=== PATIENT | female | born 1975 | race Caucasian/White ===

== ENCOUNTER → 2017-08-01 | Outpatient (CLI) | payer BC ==
[~2017-08-01] MED LIST: ACE3 PO; ACE500 PO; ACET-1966 PO; ACET1TAB PO; ACET500T68 PO; ASCO-504 PO; CEPH500T7 PO; CHOL10005 PO; CHOL100058 PO; CIPR500S3 PO; CYCL10TA29 PO; DOCU-416 PO; DOCU100C49 PO; DULO60CA7 PO; FAMO20TA28 PO; FAMO20TA9 PO; FAMO40TA8 PO; FERR240T23 PO; FLUO-202 PO; GASTROZYME; GUAI600T57 PO; HYDR25 PO; IBU800 PO; IBUP200C71 PO; INDO-1 PO; LACT1CAP9 PO; LEVO75TA68 PO; LEVO75TA73 PO; MAGN250T26 PO; NAPR500T75 PO; NONE CURRENTLY; OMEG500C7 PO; OXYC-373 PO; OXYC-854 PO; PANT40TA13 PO; POLY17PO25 PO; PREN-67 PO; VITA150T2 PO; [UNRECOGNIZED DRUG - CODE] PO; [UNRECOGNIZED DRUG - OTHER]; iodine PO; vit c
[2017-08-01 15:02] LABS: PLATELET COUNT, AUTOMATED 318 K/uL (150-450)
== END ==
LOC: LAB 14:34
PROVIDERS: ATTEND Nurse Practitioner Family
DX: K21.9 Gastro-esophageal reflux disease without esophagitis (principal); R13.10 Dysphagia, unspecified; R68.81 Early satiety; D50.9 Iron deficiency anemia, unspecified; Z80.9 Family history of malignant neoplasm, unspecified
CPT/HCPCS: 36415; 82040; 82247; 82310; 82374; 82435; 82565; 82947; 83540; 83550; 84075; 84132; 84155; 84295; 84439; 84443; 84450; 84460; 84481; 84520; 85025

== ENCOUNTER → 2017-08-02 | Outpatient (CLI) | payer BC ==
[~2017-08-02] MED LIST changes: +GADOBENATE 529MG/1ML 15ML VIAL IVP ONE
--- NOTE | 2017-08-02 13:07 | RADIOLOGY IMAGING REPORT ---
FACILITY: [facility] - [place] PATIENT NAME: Margie Newman : 1975 MR: [id number] V: [id number] EXAM DATE: ORDERING PHYSICIAN: KEVON KERN TECHNOLOGIST: Location: [facility] Patient: Margie Newman : 1975 Visit/Account:[id number] Date of Sevice: 08/02/2017 Exam type: ORBITS FOREIGN BODY 1 VIEW History: Pre-MRI screening Comparison: None. Findings: No radiopaque metallic foreign bodies project over the orbits IMPRESSION: 1. No radiopaque metallic foreign bodies project over the orbits Report Dictated By: Cinthia Witt MD at 08/02/2017 1:01 PM Report E-Signed By: Cinthia Witt MD at 08/02/2017 1:02 PM WSN:[email or web address]
--- NOTE | 2017-08-02 14:31 | RADIOLOGY IMAGING REPORT ---
[place] [facility] [place] NAME: Margie Newman : 1975 MR: [id number] V: [id number] EXAM DATE: ORDERING PHYSICIAN: KEVON KERN TECHNOLOGIST: [place] [facility] [place] : 1975 Visit/Account:[id number] Date of Sevice: 08/02/2017 BRAIN W W/O CONTRAST Provided history: New right foot drop Additional pertinent history: none TECHNIQUE: Multiplanar multisequence brain MRI was performed without and with intravenous contrast Contrast dose: 15 mL of MultiHance. Additional focused sequences: none COMPARISON STUDIES: None FINDINGS: Brain volume: Normal Acute ischemia: None Chronic cortical and ganglionic ischemia: none significant Hemorrhage: None Masses / edema: None White matter lesions : Normal Vessels: Normal Extra-axial: None Calvarium / scalp: Negative Skull base / infratemporal fossa: negative Visualized sinuses / orbits / upper neck: negative IMPRESSION: Normal MR of the brain. No evidence of mass, acute ischemia or hemorrhage. Report Dictated By: Ashutosh Garcia MD at 08/02/2017 1:59 PM Report E-Signed By: Ashutosh Garcia MD at 08/02/2017 2:03 PM WSN:[email or web address]
== END ==
LOC: MRI 03:39
PROVIDERS: ATTEND Family Medicine
DX: M21.371 Foot drop, right foot (principal)
CPT/HCPCS: 70030; 70553; A9577

== ENCOUNTER → 2017-08-07 | Outpatient (CLI) | payer BC ==
[~2017-08-07] MED LIST changes: -GADOBENATE 529MG/1ML 15ML VIAL IVP ONE
--- NOTE | 2017-08-07 09:40 | RADIOLOGY IMAGING REPORT ---
FACILITY: [facility] PATIENT NAME: Margie Newman : 1975 MR: [id number] V: [id number] EXAM DATE: ORDERING PHYSICIAN: KEVON KERN TECHNOLOGIST: Location: [facility] Patient: Margie Newman : 1975 Visit/Account:[id number] Date of Sevice: 08/07/2017 Exam type: LUMBAR SPINE 4 VIEWS History: Low back pain, right foot drop Comparison: None. Findings: There are five nonrib-bearing lumbar-type vertebral bodies present. There is no evidence of acute fr actures or subluxations. This mild disc space narrowing noted at L1-2 with small anterior osteophyte s. Small anterior osteophytes also noted at L2-3. There is moderate disc space narrowing with anter ior/ posterior osteophytes at L3-4 and L4-5 and L5-S1 IMPRESSION: 1. Mild to moderate multilevel spondylotic changes lumbar spine as detailed above Report Dictated By: Cinthia Witt MD at 08/07/2017 9:34 AM Report E-Signed By: Cinthia Witt MD at 08/07/2017 9:36 AM WSN:[email or web address]
== END ==
LOC: RAD 08:19
PROVIDERS: ATTEND Family Medicine
DX: M47.896 Other spondylosis, lumbar region (principal)
CPT/HCPCS: 72120

== ENCOUNTER 2017-08-11 16:15 | Emergency (ER) | payer BC ==
[~2017-08-11] VITALS: Ht 167.6 cm; Wt 93.0 kg
[2017-08-11] MEDS ORDERED: LEVO75TA73 PO (16:23)
[2017-08-11] MEDS ORDERED: NS(*) 0.9% 1000 ML BAG 1,000 ML IV ONE (16:36)
[2017-08-11 16:46] LABS: PLATELET COUNT, AUTOMATED 310 K/uL (150-450)
--- NOTE | 2017-08-11 16:53 | EKG ---
FACILITY: [facility] [place] PATIENT NAME: CARLA PAGAN : [id number] MR: [id number] V: [id number] EXAM DATE: ORDERING PHYSICIAN: PORFIRIO LEIJA TECHNOLOGIST: ETIENNE Donovan Reason : not feeling well Blood Pressure : / mmHG Vent. Rate : 081 BPM Atrial Rate : 081 BPM P-R Int : 148 ms QRS Dur : 100 ms QT Int : 394 ms P-R-T Axes : 062 031 057 degrees QTc Int : 457 ms Normal sinus rhythm Normal ECG When compared with ECG of 01-OCT-2016 11:56, No significant change was found Confirmed by AN ARTHUR ([id number]) on 08/12/2017 6:23:49 AM Referred By: Confirmed By:AN ARTHUR
--- NOTE | 2017-08-11 17:06 | ER Report ---
History and Physical Time Seen By MD: 16:30 Hx. of Stated Complaint: P PRESENTS VIA AMBULANCE WITH HX OF LIGHTHEADED AND DIZZY, WITH A RAPID HEART RATE. HAS BEEN DEALING WITH HER THYROID MEDS CHANGING LAST FEW DAYS HPI/ROS CHIEF COMPLAINT: Not feeling well, racing heart HISTORY OF PRESENT ILLNESS: 41-year-old female patient presents to emergency room with complaint of not feeling well. Patient states that she has had a racing heart. She states that she has not felt well all day, she was sitting on the toilet and was having a diarrhea bowel movement. She states that while she was there she felt her heart was beating out of her chest. She states that she has been feeling better for the last couple of minutes, but she still feels like she is not feeling well. She denies having any fevers, however she states she has had hot flashes. She denies any nausea, vomiting but states she has had some diarrhea. She states she is not taking any medication for this. Patient does have a history of Franca's, fibromyalgia. REVIEW OF SYSTEMS: Respiratory: No cough, no dyspnea. Cardiovascular: As noted above Gastrointestinal: No vomiting, no abdominal pain. Musculoskeletal: No back pain. Allergies: Coded Allergies: Sulfa (Sulfonamide Antibiotics) (Verified Allergy, Severe, 08/11/17) pantoprazole sodium (Verified Allergy, Intermediate, FACIAL SWELLING, 08/11) Home Meds Reported Medications Levothyroxine Sodium (LEVOTHYROXINE SODIUM) 75 Mcg Tablet, 75 MCG PO QDAY, TAB 08/11/17 Duloxetine HCl (Duloxetine HCl) 60 Mg Capsule.dr, 30 CAP PO DAILY 05/20/17 [Gastrozyme] No Conflict Check 05/20/17 Famotidine (PEPCID) 20 Mg Tablet, 40 MG PO QDAY, #10 TAB 10/01/16 Cholecalciferol (Vitamin D3) (VITAMIN D3) 1,000 Unit Tablet, 43527 UNIT PO QDAY , TAB 10/01/16 Ferrous Gluconate (IRON) 240 Mg Tablet, 240 MG PO QDAY 10/01/16 Docusate Sodium (STOOL SOFTENER) 100 Mg Capsule, 100 MG PO DAILY, CAPSULE 02/02/16 Ascorbate Calcium (VITAMIN C) 500 Mg Tablet, 500 MG PO QDAY 07/28/15 Magnesium (MAGNESIUM) 250 Mg Tablet, 250 MG PO QDAY 07/28/15 Vitamin B Complex & Vit C No.4 (SUPER B COMPLEX) 150 Mg Tablet, 150 MG PO QDAY 07/28/15 Discontinued Reported Medications [Iodizyme] No Conflict Check 05/20/17 Discontinued Scripts Naproxen (NAPROSYN) 500 Mg Tablet, 500 MG PO Q12H Y for PAIN, #20 TAB 0 Refills Prov:TUNG JOHNSON MD 10/01/16 Past Medical/Surgical History Patient has a past medical history of migraines, hiatal hernia, back pain, Franca's, depression, anxiety. Patient has surgical history of tubal ligation, EGD, bunionectomy, lymph node removal. Patient has a family medical history of cancer, CAD, stroke, diabetes. Reviewed Nurses Notes: Yes Hx Smoking: Yes (1/2ppd X 20) Smoking Status: Former Smoker Exposure to Second Hand Smoke?: Yes Hx Substance Use Disorder: No Hx Alcohol Use: No Constitutional Vital Sign - Last 24 Hours 08/11/17 08/11/17 08/11/17 08/11/17 16:15 16:16 16:17 16:30 Temp 98.9 Pulse 87 80 Resp 16 B/P (MAP) 113/68 (83) 126/73 115/85 (95) Pulse Ox 92 93 O2 Delivery Room Air 08/11/17 08/11/17 08/11/17 08/11/17 16:45 17:00 17:19 17:20 Pulse 81 76 Resp 0 B/P (MAP) 120/80 (93) 119/72 (88) Pulse Ox 90 94 08/11/17 08/11/17 08/11/17 17:50 18:00 18:21 Pulse 76 B/P (MAP) 101/69 (80) 105/66 (79) Pulse Ox 93 Intake and Output 08/11/17 08/11/17 08/12/17 15:00 23:00 07:00 Intake Total 800 ml Balance 800 ml Physical Exam General Appearance: The patient is alert, has no immediate need for airway protection and no current signs of toxicity. ENT: Tympanic membranes are pearly-gutierrez, auditory canals are patent, mucous membranes are moist. Respiratory: Chest is non tender, lungs are clear to auscultation. Cardiac: regular rate and rhythm Gastrointestinal: Abdomen is soft and non tender, no masses, bowel sounds normal. Musculoskeletal: Neck: Neck is supple and non tender. Extremities have full range of motion and are non tender. Skin: No rashes or lesions. DIFFERENTIAL DIAGNOSIS: After history and physical exam differential diagnosis was considered for viral syndrome, influenza, gastroenteritis. Medical Decision Making Data Points Result Diagram: 08/11/17 1605 08/11/17 1605 Laboratory Hematology Test 08/11/17 16:05 08/11/17 16:54 08/11/17 17:19 Red Blood Count 5.41 M/uL (4.17-5.56) Mean Corpuscular Volume 89.0 fL (80.0-96.0) Mean Corpuscular Hemoglobin 31.3 pg (26.0-33.0) Mean Corpuscular Hemoglobin Concent 35.1 g/dL (32.0-36.0) Red Cell Distribution Width 13.1 % (11.5-14.5) Mean Platelet Volume 7.3 fL (7.2-11.1) Neutrophils (%) (Auto) 49.1 % (39.4-72.5) Lymphocytes (%) (Auto) 37.7 % (17.6-49.6) Monocytes (%) (Auto) 10.3 % (4.1-12.4) Eosinophils (%) (Auto) 1.9 % (0.4-6.7) Basophils (%) (Auto) 1.0 % (0.3-1.4) Nucleated RBC Relative Count (auto) 0.2 /100WBC Neutrophils # (Auto) 5.2 K/uL (2.0-7.4) Lymphocytes # (Auto) 4.0 K/uL (1.3-3.6) Monocytes # (Auto) 1.1 K/uL (0.3-1.0) Eosinophils # (Auto) 0.2 K/uL (0.0-0.5) Basophils # (Auto) 0.1 K/uL (0.0-0.1) Nucleated RBC Absolute Count (auto) 0.02 K/uL Sodium Level 138 mmol/L (137-145) Potassium Level 3.6 mmol/L (3.5-5.0) Chloride Level 102 mmol/L (98-107) Carbon Dioxide Level 25 mmol/L (22-31) Blood Urea Nitrogen 15 mg/dl (7-18) Creatinine 0.80 mg/dl (0.52-1.04) Glomerular Filtration Rate Calc > 60.0 Random Glucose 96 mg/dl (75-110) Calcium Level 9.8 mg/dl (8.4-10.2) Total Bilirubin 0.4 mg/dl (0.2-1.3) Aspartate Amino Transf (AST/SGOT) 35 U/L (0-35) Alanine Aminotransferase (ALT/SGPT) 39 U/L (0-56) Alkaline Phosphatase 81 U/L (0-126) C-Reactive Protein < 0.5 mg/dl (<1.0) Total Protein 8.5 gm/dl (6.3-8.2) Albumin 4.8 g/dl (3.5-5.0) Lipase 144 U/L (23-300) Human Chorionic Gonadotropin, Qual Negative (NEGATIVE) Influenza Virus Type A (PCR) Negative (NEGATIVE) Influenza Virus Type B (PCR) Negative (NEGATIVE) Urine Color Straw Urine Clarity Clear Urine pH 6.0 pH (4.8-9.5) Urine Specific Campbell 1.002 Urine Protein Negative mg/dL (NEGATIVE) Urine Glucose (UA) Negative mg/dL (NEGATIVE) Urine Ketones Negative mg/dL (NEGATIVE) Urine Blood Negative (NEGATIVE) Urine Nitrite Negative (NEGATIVE) Urine Bilirubin Negative (NEGATIVE) Urine Urobilinogen Negative mg/dL (0.2-1.9) Urine Leukocyte Esterase Negative (NEGATIVE) Urine RBC 1 /HPF (0-2/HPF) Urine WBC <1 /HPF (0-5/HPF) Urine Squamous Epithelial Cells Many /LPF (</=FEW) Urine Bacteria Negative /HPF (NONE-FEW) Urine Mucus None /HPF (NONE-FEW) Chemistry Test 08/11/17 16:05 08/11/17 16:54 08/11/17 17:19 White Blood Count 10.6 k/uL (4.5-11.0) Red Blood Count 5.41 M/uL (4.17-5.56) Hemoglobin 16.9 g/dL (12.0-16.0) Hematocrit 48.2 % (34.0-47.0) Mean Corpuscular Volume 89.0 fL (80.0-96.0) Mean Corpuscular Hemoglobin 31.3 pg (26.0-33.0) Mean Corpuscular Hemoglobin Concent 35.1 g/dL (32.0-36.0) Red Cell Distribution Width 13.1 % (11.5-14.5) Platelet Count 310 K/uL (150-450) Mean Platelet Volume 7.3 fL (7.2-11.1) Neutrophils (%) (Auto) 49.1 % (39.4-72.5) Lymphocytes (%) (Auto) 37.7 % (17.6-49.6) Monocytes (%) (Auto) 10.3 % (4.1-12.4) Eosinophils (%) (Auto) 1.9 % (0.4-6.7) Basophils (%) (Auto) 1.0 % (0.3-1.4) Nucleated RBC Relative Count (auto) 0.2 /100WBC Neutrophils # (Auto) 5.2 K/uL (2.0-7.4) Lymphocytes # (Auto) 4.0 K/uL (1.3-3.6) Monocytes # (Auto) 1.1 K/uL (0.3-1.0) Eosinophils # (Auto) 0.2 K/uL (0.0-0.5) Basophils # (Auto) 0.1 K/uL (0.0-0.1) Nucleated RBC Absolute Count (auto) 0.02 K/uL Glomerular Filtration Rate Calc > 60.0 Calcium Level 9.8 mg/dl (8.4-10.2) Total Bilirubin 0.4 mg/dl (0.2-1.3) Aspartate Amino Transf (AST/SGOT) 35 U/L (0-35) Alanine Aminotransferase (ALT/SGPT) 39 U/L (0-56) Alkaline Phosphatase 81 U/L (0-126) C-Reactive Protein < 0.5 mg/dl (<1.0) Total Protein 8.5 gm/dl (6.3-8.2) Albumin 4.8 g/dl (3.5-5.0) Lipase 144 U/L (23-300) Human Chorionic Gonadotropin, Qual Negative (NEGATIVE) Influenza Virus Type A (PCR) Negative (NEGATIVE) Influenza Virus Type B (PCR) Negative (NEGATIVE) Urine Color Straw Urine Clarity Clear Urine pH 6.0 pH (4.8-9.5) Urine Specific Campbell 1.002 Urine Protein Negative mg/dL (NEGATIVE) Urine Glucose (UA) Negative mg/dL (NEGATIVE) Urine Ketones Negative mg/dL (NEGATIVE) Urine Blood Negative (NEGATIVE) Urine Nitrite Negative (NEGATIVE) Urine Bilirubin Negative (NEGATIVE) Urine Urobilinogen Negative mg/dL (0.2-1.9) Urine Leukocyte Esterase Negative (NEGATIVE) Urine RBC 1 /HPF (0-2/HPF) Urine WBC <1 /HPF (0-5/HPF) Urine Squamous Epithelial Cells Many /LPF (</=FEW) Urine Bacteria Negative /HPF (NONE-FEW) Urine Mucus None /HPF (NONE-FEW) Urinalysis Test 08/11/17 17:19 Urine Color Straw Urine Clarity Clear Urine pH 6.0 pH (4.8-9.5) Urine Specific Campbell 1.002 Urine Protein Negative mg/dL (NEGATIVE) Urine Glucose (UA) Negative mg/dL (NEGATIVE) Urine Ketones Negative mg/dL (NEGATIVE) Urine Blood Negative (NEGATIVE) Urine Nitrite Negative (NEGATIVE) Urine Bilirubin Negative (NEGATIVE) Urine Urobilinogen Negative mg/dL (0.2-1.9) Urine Leukocyte Esterase Negative (NEGATIVE) Urine RBC 1 /HPF (0-2/HPF) Urine WBC <1 /HPF (0-5/HPF) Urine Squamous Epithelial Cells Many /LPF (</=FEW) Urine Bacteria Negative /HPF (NONE-FEW) Urine Mucus None /HPF (NONE-FEW) EKG/Imaging EKG Interpretation 12 lead EKG: Rhythm: normal sinus rhythm with ventricular rate of 81 bpm. [place]: normal QRS: normal ST segments: normal Imaging ABDOMEN AP AND ERECT/DECUB INDICATION: Not feeling well. COMPARISON: None available FINDINGS: Supine and upright AP views of the abdomen. Some stool seen throughout colon. Bowel gas pattern is nonobstructed nondilated with some fluid -filled loops of small bowel. There is a tiny ringlike density in the left lateral abdomen which may be debris in the alimentary tract. Abdominal soft tissues are grossly normal without suspicious lucencies or abnormal calcifications. Lung bases are clear. No acute bony abnormality. IMPRESSION: Unremarkable exam. Report Dictated By: Hemant Romero at 08/11/2017 5:57 PM Report E-Signed By: Hemant Romero at 08/11/2017 5:59 PM 2 VIEWS CHEST INDICATION: Not feeling well. COMPARISON: 10/01/2016. FINDINGS: Cardiomediastinal silhouette and pulmonary vessels within normal limits. There is no focal infiltrate or lobar consolidation. There is no pneumothorax or pleural effusion. No nodule. Upper abdomen is unremarkable. No acute bony abnormality. IMPRESSION: 1. No acute cardiopulmonary process. Report Dictated By: Hemant Romero at 08/11/2017 5:56 PM Report E-Signed By: Hemant Romero at 08/11/2017 5:57 PM ED Course/Re-evaluation ED Course Patient is admitted and examined, history and physical were obtained. Differential diagnoses were considered. On examination patient had a heart rate that was in the 80s, patient had no tachycardia, no runs on examination. A CBC, CMP, urinalysis, influenza screen were done. Patient received a bolus of normal saline. X-rays of the chest and abdomen were done due to the diarrhea and elevated heart rate. The labs were unremarkable, the influenza was negative, the x-rays were also normal. Patient had an EKG which showed a normal sinus rhythm. I discussed findings with the patient and her family. I believe that she is likely having a viral syndrome. Is causing her diarrhea as well as her not feel well. We will go ahead and discharge patient home at this time. She is to increase her fluid intake, get plenty of rest, take Tylenol ibuprofen as if pain. The patient verbalized understanding and agreement with plan. Decision to Disposition Date: Aug 11, 2017 Decision to Disposition Time: 18:18 Depart Departure Latest Vital Signs Vital Signs Date Time Temp Pulse Resp B/P (MAP) Pulse Ox O2 Delivery O2 Flow Rate FiO2 08/11/17 18:21 105/66 (79) 08/11/17 17:50 76 93 08/11/17 16:45 0 08/11/17 16:17 98.9 Room Air Impression: Primary Impression: Viral syndrome Condition: Improved Disposition: HOME OR SELF-CARE Referrals: KEVON KERN DO (PCP) Patient Instructions: Viral Syndrome (ED) Additional Instructions: Increase fluid intake. Get plenty of rest. Take Tylenol or Ibuprofen as needed for pain. Follow up with your primary care provider in the next week. Return to the ER if condition worsens. You may take over the counter Pepto Bismol as needed for cramping, diarrhea and discomfort. PORFIRIO LEIJA Aug 11, 2017 17:06
--- NOTE | 2017-08-11 18:01 | RADIOLOGY IMAGING REPORT ---
FACILITY: [facility] PATIENT NAME: Margie Newman : 1975 MR: [id number] V: [id number] EXAM DATE: ORDERING PHYSICIAN: PORFIRIO LEIJA TECHNOLOGIST: Location: [facility] Patient: Margie Newman : 1975 Visit/Account:[id number] Date of Sevice: 08/11/2017 2 VIEWS CHEST INDICATION: Not feeling well. COMPARISON: 10/01/2016. FINDINGS: Cardiomediastinal silhouette and pulmonary vessels within normal limits. There is no focal infiltrate or lobar consolidation. There is no pneumothorax or pleural effusion. No nodule. Upper abdomen is unremarkable. No acute bony abnormality. IMPRESSION: 1. No acute cardiopulmonary process. Report Dictated By: Hemant Romero at 08/11/2017 5:56 PM Report E-Signed By: Hemant Romero at 08/11/2017 5:57 PM WSN:[id number]
--- NOTE | 2017-08-11 18:03 | RADIOLOGY IMAGING REPORT ---
[place] [facility] [place] NAME: Margie Newman : 1975 MR: [id number] V: [id number] EXAM DATE: ORDERING PHYSICIAN: PORFIRIO LEIJA TECHNOLOGIST: Location: [facility] [place] Patient: Margie Newman : 1975 Visit/Account:[id number] Date of Sevice: 08/11/2017 ABDOMEN AP AND ERECT/DECUB INDICATION: Not feeling well. COMPARISON: None available FINDINGS: Supine and upright AP views of the abdomen. Some stool seen throughout colon. Bowel gas pattern is nonobstructed nondilated with some fluid-filled loops of small bowel. There is a tiny ri nglike density in the left lateral abdomen which may be debris in the alimentary tract. Abdominal so ft tissues are grossly normal without suspicious lucencies or abnormal calcifications. Lung bases ar e clear. No acute bony abnormality. IMPRESSION: Unremarkable exam. Report Dictated By: Hemant Romero at 08/11/2017 5:57 PM Report E-Signed By: Hemant Romero at 08/11/2017 5:59 PM WSN:[id number]
[2017-08-11 18:21] VITALS: BP 105/66
== END 2017-08-11 18:25 | disposition home or self-care (01) ==
LOC: ER 16:30
DX: B34.9 Viral infection, unspecified (principal)
CPT/HCPCS: 71046; 74019; 81001; 83690; 84703; 85025; 86140; 87502; 93005; 96360; 96361; 99284; J7030; 82040; 82247; 82310; 82374; 82435; 82565; 82947; 84075; 84132; 84155; 84295; 84450; 84460; 84520

== ENCOUNTER → 2017-08-11 | Outpatient (CLI) | payer BC | LOC: AMB 15:58 | PROVIDERS: ATTEND Nurse Practitioner | DX: R00.0 Tachycardia, unspecified (principal); R11.0 Nausea; R50.9 Fever, unspecified | CPT/HCPCS: A0425; A0427 ==

== ENCOUNTER 2017-08-29 00:13 | Day surgery (SDC) | payer BC ==
[~2017-08-29] VITALS: Ht 167.6 cm; Wt 93.9 kg
[2017-08-29] MEDS ORDERED: PROPOFOL EMUL(*) 10MG/ML 20 ML 20 ML ONE ×4 (07:09→12:00)
[2017-08-29 09:52] VITALS: BP 112/76
[2017-08-29] MEDS ORDERED: MIDAZOLAM 2 MG/2 ML VIAL IVP PRN (12:05)
[2017-08-29] MEDS ORDERED: NORMOSOL R SOLN(*) 1000 ML BAG 1,000 ML IV PRN (12:05)
[2017-08-29] MEDS ORDERED: LIDOCAINE/SOD BICARB 8.4% SYR ID ONE (12:05)
[2017-08-29 12:11] VITALS: BP 109/59
[2017-08-29 12:15] VITALS: BP 95/54
[2017-08-29 12:27] VITALS: BP 108/74
[2017-08-29 12:28] VITALS: BP 122/88
== END 2017-08-29 13:15 | disposition home or self-care (01) ==
LOC: OR 00:13
PROVIDERS: ATTEND Internal Medicine Gastroenterology
DX: K64.8 Other hemorrhoids (principal); K57.30 Diverticulosis of large intestine without perforation or abscess without bleeding; K63.5 Polyp of colon
CPT/HCPCS: 00811; 45380; 81025; 88305; 88313; 88344; J2704; C1769

== ENCOUNTER → 2017-09-04 | Outpatient (CLI) | payer BC ==
[~2017-09-04] MED LIST changes: +IOPAMIDOL 76% 75 ML INFUS BTL 75 ML ONE
[2017-09-04 11:38] LABS: PLATELET COUNT, AUTOMATED 314 K/uL (150-450)
--- NOTE | 2017-09-04 12:43 | RADIOLOGY IMAGING REPORT ---
FACILITY: [facility] - [place] PATIENT NAME: Margie Newman : 1975 MR: [id number] V: [id number] EXAM DATE: ORDERING PHYSICIAN: NORA LOPEZ TECHNOLOGIST: Location: [facility] [place] Patient: Margie Newman : 1975 Visit/Account:[id number] Date of Sevice: 09/04/2017 COMPUTED TOMOGRAPHY OF THE Abdomen and Pelvis with CONTRAST INDICATION: Postprocedural epigastric pain. TECHNIQUE: Contiguous axial 3.[address] images were obtained through the abdomen and pelvis after the administration of Isovue 370. The volume was not recorded on the paperwork. Coronal and sagittal refo rmatted images were submitted. COMPARISON: CT of May 20, 2017. FINDINGS: Lung bases: Mild dependent atelectasis. Liver and hepatic vasculature: Subcentimeter hypodensity posteriorly in the right lobe of the liver is too small to characterize but could be a cyst (series 2 image 56). Smooth liver surface. No ascite s. Gallbladder and bile ducts: Normal gallbladder. Spleen: Normal spleen. Pancreas: Normal pancreas. Adrenals: Normal adrenals. Kidneys, ureters and bladder: Symmetric renal enhancement. No hydronephrosis.. A calcification in th e right lower pelvis is likely a phlebolith. The downstream course of the right ureter is not well de fined. Normal-appearing bladder. Retroperitoneum and aorta: Mild aortic atherosclerosis. No retroperitoneal adenopathy. GI tract, mesentery and peritoneum: Normal appendix. No bowel obstruction. No free fluid or free air. Uterus and adnexa: Unremarkable uterus may be bicornuate. Trace fluid in cul-de-sac is within physiol ogic limits. The ovaries are not well defined. Bones and soft tissues: No acute osseous abnormality. Moderate multilevel disc and endplate degenerat lina findings in the lumbar spine most notable at L3-4 and L4-5. IMPRESSION: 1. Trace fluid in the cul-de-sac is likely physiologic. The ovaries are not well-defined. 2. No definite evidence of acute intra-abdominal abnormality. Findings of no acute abnormality telephoned directly to the ordering provider by the radiology I[facility]. One of the following dose optimization techniques was utilized in the performance of this exam: Autom ated exposure control; adjustment of the mA and/or kV according to the patient's size; or use of an i terative reconstruction technique. Specific details can be referenced in the facility's radiology C T exam operational policy. Report Dictated By: Jesica Velarde MD at 09/04/2017 12:29 PM Report E-Signed By: Jesica Velarde MD at 09/04/2017 12:39 PM WSN:[id number]
== END ==
LOC: CT 01:05
PROVIDERS: ATTEND Nurse Practitioner Family
DX: J98.11 Atelectasis (principal)
CPT/HCPCS: 36415; 74177; 85025; Q9967; 82040; 82247; 82310; 82374; 82435; 82565; 82947; 84075; 84132; 84155; 84295; 84450; 84460; 84520

== ENCOUNTER → 2018-01-24 | Outpatient (CLI) | payer BC ==
[~2018-01-24] MED LIST changes: +BIFI4CAP2 PO; +HYDR-385 PO; +IBUP-136 PO; -IBUP200C71 PO; -INDO-1 PO; +INDO-21 PO; -IOPAMIDOL 76% 75 ML INFUS BTL 75 ML ONE
== END ==
LOC: RESP 20:48
PROVIDERS: ATTEND Family Medicine
DX: G47.30 Sleep apnea, unspecified (principal); G47.61 Periodic limb movement disorder

== ENCOUNTER 2018-01-31 15:20 | Emergency (ER) | payer OTHER, BC ==
[2018-01-31 15:20] VITALS: BP 130/72
[~2018-01-31 15:20] MED LIST changes: -BIFI4CAP2 PO; -HYDR-385 PO
[2018-01-31] MEDS ORDERED: BIFI4CAP2 PO (15:25)
--- NOTE | 2018-01-31 15:46 | ER Report ---
History and Physical Time Seen By MD: 15:33 Hx. of Stated Complaint: PT REPORTS L GREAT TOE INJURY HPI/ROS CHIEF COMPLAINT: Left foot pain HISTORY OF PRESENT ILLNESS: 42-year-old female patient presents to emergency room with complaint of left foot pain. Patient states that she was at work today , her and another coworker were moving a beam. She states that the coworker move and she was expecting causing her to lose her balance and fall. She states when it happened she hurt her left great toe. Patient states she also hit her knee on the edema they were moving. Patient states she does have some pain to the left knee, however most of the pain is with the left great toe. States that she has pain with movement. She denies taking any medication for this. She has not applied any ice. States she has significant amount of pain with ambulation. Allergies: Coded Allergies: Sulfa (Sulfonamide Antibiotics) (Verified Allergy, Severe, 01/31/18) pantoprazole sodium (Verified Allergy, Intermediate, FACIAL SWELLING, 01/31) Home Meds Active Scripts Hydrocodone Bit/Acetaminophen (HYDROCODON-ACETAMINOPHEN 5-325) 1 Each Tablet, 1 EACH PO Q4-6H Y for PAIN, #10 TAB Prov:PORFIRIO LEIJA BOILER/CHILLER TECHNICIAN 01/31/18 Reported Medications Bifidobacterium Infantis (ALIGN) 4 Mg Capsule, 4 MG PO QDAY, CAPSULE 01/31/18 Levothyroxine Sodium (LEVOTHYROXINE SODIUM) 75 Mcg Tablet, 75 MCG PO QDAY, TAB 08/11/17 Duloxetine HCl (Duloxetine HCl) 60 Mg Capsule.dr, 30 CAP PO DAILY 05/20/17 Famotidine (PEPCID) 20 Mg Tablet, 40 MG PO QDAY, #10 TAB 10/01/16 Cholecalciferol (Vitamin D3) (VITAMIN D3) 1,000 Unit Tablet, 35038 UNIT PO QDAY , TAB 10/01/16 Ascorbate Calcium (VITAMIN C) 500 Mg Tablet, 500 MG PO QDAY 07/28/15 Vitamin B Complex & Vit C No.4 (SUPER B COMPLEX) 150 Mg Tablet, 150 MG PO QDAY 07/28/15 Discontinued Reported Medications Ferrous Gluconate (IRON) 240 Mg Tablet, 240 MG PO QDAY 10/01/16 Docusate Sodium (STOOL SOFTENER) 100 Mg Capsule, 100 MG PO DAILY, CAPSULE 02/02/16 Past Medical/Surgical History Patient has a past medical history of migraines, reflux, gastroparesis, hiatal hernia, pain left elbow, back pain, Franca's, thyroid nodules, depression, anxiety, fibromyalgia. Patient has a surgical history of EGD, tubal ligation, bunionectomy, lymph node biopsy. Patient has a family medical history of cancer, CAD, stroke, diabetes. Reviewed Nurses Notes: Yes Hx Smoking: Yes (1/2ppd X 20) Smoking Status: Former Smoker Exposure to Second Hand Smoke?: Yes Hx Substance Use Disorder: No Hx Alcohol Use: No Constitutional Vital Sign - Last 24 Hours 01/31/18 15:20 Temp 98.5 Pulse 96 Resp 16 B/P (MAP) 130/72 Pulse Ox 94 O2 Delivery Room Air Physical Exam General appearance: Alert no distress. Respiratory: Chest is non tender, lungs are clear to auscultation. Cardiac: Regular rate and rhythm Musculoskeletal: Patient has some tenderness to the left great toe, there is no swelling or bruising noted. Patient does have abrasion and some very mild bruising around the knee. DIFFERENTIAL DIAGNOSIS: After history and physical exam differential diagnosis was considered for fracture, contusion, sprain. Medical Decision Making EKG/Imaging Imaging EXAMINATION: Left foot 3 views HISTORY: Fall. COMPARISON: None. FINDINGS: There is a nondisplaced fracture traversing the distal shaft of the proximal phalanx of the left first toe. No displacement or angulation. No evidence of additional fracture or dislocation in the left foot. There is chronic appearing irregularity along the head and neck of the first metacarpal which could be degenerative or posttraumatic in nature. There is mild joint space narrowing at the first MTP joint with slight osteophyte formation. Small plantar and Achilles calcaneal spurs. Soft tissues are radiographically unremarkable. IMPRESSION: 1. Nondisplaced fracture of the proximal phalanx of the left first toe. 2. No other acute osseous findings in the left foot. 3. Mild chronic degenerative changes at the first MTP joint. Chronic appearing irregularity along the head and neck of the first metatarsal may be degenerative in nature or related to old trauma. Report Dictated By: Gigi Garland MD at 01/31/2018 4:35 PM Report E-Signed By: Gigi Garland MD at 01/31/2018 4:42 PM EXAMINATION: Left knee 4 views HISTORY: Fall. COMPARISON: None. FINDINGS: Bones of the left knee demonstrate normal alignment. No evidence of acute fracture or dislocation. The medial and lateral joint spaces are preserved, with slight marginal osteophyte formation along the medial compartment. Mild degenerative changes at the patellofemoral joint. Soft tissues are radiographically unremarkable. No visualized knee joint effusion. IMPRESSION: 1. No acute osseous findings at the left knee. 2. Mild chronic degenerative changes in the medial compartment and patellofemoral joint. Report Dictated By: Gigi Garland MD at 01/31/2018 4:42 PM Report E-Signed By: Gigi Garland MD at 01/31/2018 4:43 PM ED Course/Re-evaluation ED Course Patient was admitted in exam room, history of physical were obtained. Differential diagnoses were considered. On examination patient has tenderness to the left great toe, some bruising to the left knee and tenderness. X-rays done of the left foot as well as the left knee. Patient has a fracture of the proximal phalange of the great toe. It is nondisplaced. The x-ray of the knee showed no acute fractures. We discussed the findings with the patient. We will go ahead and discharge patient home at this time. We will place her in a postop shoe to help prevent any flexion. We will give her a limited supply of pain medication. She is to follow-up with primary bone and joint, she is to call on Saturday to make an appointment. The patient verbalized understanding and agreement with plan. Decision to Disposition Date: Jan 31, 2018 Decision to Disposition Time: 17:22 Depart Departure Latest Vital Signs Vital Signs Date Time Temp Pulse Resp B/P (MAP) Pulse Ox O2 Delivery O2 Flow Rate FiO2 01/31/18 15:20 98.5 96 16 130/72 94 Room Air Impression: Primary Impression: Fracture of great toe Condition: Improved Disposition: HOME OR SELF-CARE Referrals: KEVON KERN DO (PCP) NOMAN CENTENO MD New Scripts Hydrocodone Bit/Acetaminophen (HYDROCODON-ACETAMINOPHEN 5-325) 1 Each Tablet 1 EACH PO Q4-6H Y for PAIN, #10 TAB Prov: PORFIRIO LEIJA BOILER/CHILLER TECHNICIAN 01/31/18 Patient Instructions: Toe Fracture (ED) Additional Instructions: Continue to wear the boot until you see your desired torpedo specialist. Return to the emergency department if your condition worsens. Follow up with your torpedo specialist for further evaluation and treatment. Rest, elevate, and ice the foot. Take ibuprofen for pain. Take Hydrocodone for severe pain. Problem Qualifiers Primary Impression: Fracture of great toe Encounter type: initial encounter Fracture type: closed Phalanx: proximal Fracture alignment: nondisplaced Laterality: left Qualified Codes: S92.415A - Nondisplaced fracture of proximal phalanx of left great toe, initial encounter for closed fracture PORFIRIO LEIJA Jan 31, 2018 15:46
--- NOTE | 2018-01-31 16:45 | RADIOLOGY IMAGING REPORT ---
[place] [facility] [place] NAME: Margie Newman : 1975 MR: [id number] V: [id number] EXAM DATE: ORDERING PHYSICIAN: PORFIRIO LEIJA TECHNOLOGIST: Location: [facility] [place] Patient: Margie Newman : 1975 Visit/Account:[id number] Date of Sevice: 01/31/2018 EXAMINATION: Left foot 3 views HISTORY: Fall. COMPARISON: None. FINDINGS: There is a nondisplaced fracture traversing the distal shaft of the proximal phalanx of the left firs t toe. No displacement or angulation. No evidence of additional fracture or dislocation in the left foot. There is chronic appearing irregularity along the head and neck of the first metacarpal which could b e degenerative or posttraumatic in nature. There is mild joint space narrowing at the first MTP joint with slight osteophyte formation. Small plantar and Achilles calcaneal spurs. Soft tissues are radiographically unremarkable. IMPRESSION: 1. Nondisplaced fracture of the proximal phalanx of the left first toe. 2. No other acute osseous findings in the left foot. 3. Mild chronic degenerative changes at the first MTP joint. Chronic appearing irregularity along the head and neck of the first metatarsal may be degenerative in nature or related to old trauma. Report Dictated By: Gigi Garland MD at 01/31/2018 4:35 PM Report E-Signed By: Gigi Garland MD at 01/31/2018 4:42 PM WSN:[id number]
--- NOTE | 2018-01-31 16:47 | RADIOLOGY IMAGING REPORT ---
[place] [facility] [place] Margie Newman : 1975 MR: [id number] V: [id number] EXAM DATE: ORDERING PHYSICIAN: PORFIRIO LEIJA TECHNOLOGIST: Location: [facility] - [place] Patient: Margie Newman : 1975 Visit/Account:[id number] Date of Sevice: 01/31/2018 EXAMINATION: Left knee 4 views HISTORY: Fall. COMPARISON: None. FINDINGS: Bones of the left knee demonstrate normal alignment. No evidence of acute fracture or dislocation. The medial and lateral joint spaces are preserved, with slight marginal osteophyte formation along th e medial compartment. Mild degenerative changes at the patellofemoral joint. Soft tissues are radiographically unremarkable. No visualized knee joint effusion. IMPRESSION: 1. No acute osseous findings at the left knee. 2. Mild chronic degenerative changes in the medial compartment and patellofemoral joint. Report Dictated By: Gigi Garland MD at 01/31/2018 4:42 PM Report E-Signed By: Gigi Garland MD at 01/31/2018 4:43 PM WSN:[id number]
[2018-01-31] MEDS ORDERED: HYDR-385 PO (17:21)
== END 2018-01-31 17:30 | disposition home or self-care (01) ==
LOC: ER 15:23
DX: S92.415A Nondisplaced fracture of proximal phalanx of left great toe, initial encounter for closed fracture (principal); W19.XXXA Unspecified fall, initial encounter
CPT/HCPCS: 73564; 99284

== ENCOUNTER 2018-03-12 08:00 | Outpatient (RCR) | payer BC, OTHER ==
[~2018-03-12 08:00] MED LIST changes: +BIFI4CAP2 PO; +HYDR-385 PO
--- NOTE | 2018-03-12 09:06 | RADIOLOGY IMAGING REPORT ---
FACILITY: [facility] - [place] PATIENT NAME: Margie Newman : 1975 MR: [id number] V: [id number] EXAM DATE: ORDERING PHYSICIAN: KEVON KERN TECHNOLOGIST: Location: [facility] - [place] Patient: Margie Newman : 1975 Visit/Account:[id number] Date of Sevice: 03/12/2018 Right upper abdomen ultrasound. HISTORY: Abdominal pain, bloating, diarrhea. COMPARISON: CT scan 09/04/2017. The liver measures 16.5 cm in sagittal length which is upper limits of normal. The liver is free of f ocal defects. The surface of the liver is smooth. The portal vein is patent. No intra or extrahepatic biliary dilatation. The gallbladder is unremarkable. The sonographic Foley's sign is negative. The pancreas is unremarkable. The right kidney is normal in size. No hydronephrosis. No ascites. Portions of the abdominal aorta and inferior vena cava are obscured. The spleen and left kidney were not incl uded. The common bile duct measures 3 mm in greatest AP diameter. IMPRESSION: Negative right upper abdomen. Report Dictated By: Olivier Garcia MD at 03/12/2018 8:59 AM Report E-Signed By: Olivier Garcia MD at 03/12/2018 9:02 AM WSN:[id number]
[2018-03-14] MEDS ORDERED: WATER FOR INJ,STERILE 20 ML 20 ML ONE (08:37)
[2018-03-14] MEDS ORDERED: SINCALIDE 5 MCG VIAL INJ ONE (08:37)
--- NOTE | 2018-03-14 12:14 | RADIOLOGY IMAGING REPORT ---
FACILITY: [facility] - [place] PATIENT NAME: Margie Newman : 1975 MR: [id number] V: [id number] EXAM DATE: ORDERING PHYSICIAN: KEVON KERN TECHNOLOGIST: [facility] Patient: Margie Newman : 1975 Visit/Account:[id number] Date of Sevice: 03/14/2018 Examination: Nuclear Medicine HIDA Scan with Kinevac Stimulation COMPARISON: None available HISTORY: Ultrasound 03/12/2018. TECHNIQUE: 6.5 mCi Tc99m Mebrofenin was injected intravenously. Multiple sequential gamma camera bar ges of the abdomen were obtained for 60 minutes. At that time, 4.0 mcg Kinevac was injected intraveno usly and an additional 30 minutes of gamma camera imaging data was acquired. A computer-generated reg ion of interest was placed around the gallbladder and time-activity curve for the gallbladder was miley ived. The gallbladder ejection fraction was calculated. FINDINGS: Liver uptake and excretion: normal Time to appearance: Bile ducts: 5 minutes. Gallbladder: 6 minutes. Duodenum: 14 minutes. Duodenogastric reflux / extravasation: none Post IV Kinevac: Ejection fraction = 86 %, (normal > 35%). IMPRESSION: 1. No evidence of cholecystitis. The common bile duct and cystic duct are patent. 2. Gallbladder ejection fraction of 86%. Report Dictated By: Quinn Genao MD at 03/14/2018 12:08 PM Report E-Signed By: Quinn Genao MD at 03/14/2018 12:10 PM WSN:[id number]
== END 2018-03-14 18:00 | disposition home or self-care (01) ==
LOC: US 08:00 → EDSTATUS 13:42 → US 03-14 18:00
PROVIDERS: ATTEND Family Medicine
DX: R10.9 Unspecified abdominal pain (principal); R19.7 Diarrhea, unspecified; R14.0 Abdominal distension (gaseous)
CPT/HCPCS: 76705; 78226; A9537; J2805

== ENCOUNTER → 2018-05-14 | Outpatient (CLI) | payer BC ==
--- NOTE | 2018-05-14 15:59 | RADIOLOGY IMAGING REPORT ---
FACILITY: [facility] PATIENT NAME: Margie Newman : 1975 MR: [id number] V: [id number] EXAM DATE: ORDERING PHYSICIAN: KEVON KERN TECHNOLOGIST: Location: [facility] [place] Patient: Margie Newman : 1975 Visit/Account:[id number] Date of Sevice: 05/14/2018 THYROID HISTORY: Franca's history, history of nodules COMPARISON: October 31, 2016 FINDINGS: SIZE: Right lobe: 5.3 x 1.6 x 1.7 cm Left lobe: 4.8 x 1.7 x 1.7 cm Isthmus: 5 mm PARENCHYMA: Slightly heterogeneous bilaterally NODULES: Right lobe: * None discrete. Left lobe: * In the medial inferior left lobe there is a 5.5 mm slightly irregular hypoechoic nodule. This was not appreciated on the prior study. Previous noted slightly complex cyst in the lateral inferior le ft lobe is not identified on the current exam Isthmus: * None discrete. VASCULARITY: Within normal limits. ADDITIONAL FINDINGS: None. IMPRESSION: Producing noted slightly complex 5 mm cyst lateral aspect the left lobe is no longer seen. There is a slightly irregular hypoechoic area in the medial inferior left lobe measuring 5.5 mm. REFERENCE: 2015 [place] [employer] Management Guidelines for Adult Patients with Thyroid Nodules and D ifferentiated Thyroid Cancer: The [place] [employer] Guidelines Task Force on Thyroid Nodul es and Differentiated Thyroid Cancer. SONOGRAPHIC PATTERNS: * Benign: Purely cystic nodules (no solid component); estimated risk of malignancy <1 percent; no bi opsy recommended. * Very Low Suspicion: Spongiform or partially cystic nodules without any of the sonographic features described in low, intermediate, or high suspicion patterns; estimated risk of malignancy <3 percent; consider FNA at > 2 cm (Observation without FNA is also a reasonable option). * Low Suspicion: Isoechoic or hyperechoic solid nodule, or partially cystic nodule with eccentric so lid areas, without microcalcification, irregular margin or ETE (extra-thyroidal extension), or taller than wide shape; estimated risk of malignancy 5-10 percent; recommend FNA at >1.5 cm. * Intermediate Suspicion: Hypoechoic solid nodule with smooth margins without microcalcifications, E TE (extra-thyroidal extension), or taller than wide shape; estimated risk of malignancy 10-20 percent ; recommend FNA at > 1 cm. * High Suspicion: Solid hypoechoic nodule or solid hypoechoic component of a partially cystic nodule with one or more of the following features: irregular margins (infiltrative, microlobulated), microc alcifications, taller than wide shape, rim calcifications with small extrusive soft tissue component, evidence of ETE (extra-thyroidal extension); estimated risk of malignancy >70-90 percent; recommend FNA at > 1 cm. NOTES: * Although a sonographically suspicious subcentimeter thyroid nodule without evidence of extrathyroi herminio extension or sonographically suspicious lymph nodes may be observed with close sonographic follow -up rather than pursuing immediate FNA, patient age and preference may modify decision-making. A > 50% interval increase in nodule volume and/or development of new suspicious sonographic features are felt to be a valid reasons for potential re-aspiration of a nodule previously shown to have benig n FNA cytology. Report Dictated By: Cinthia Witt MD at 05/14/2018 3:42 PM Report E-Signed By: Cinthia Witt MD at 05/14/2018 3:55 PM WSN:[email or web address]
--- NOTE | 2018-05-15 10:48 | RADIOLOGY IMAGING REPORT ---
[place] [facility] [place] NAME: CARLA PAGAN : [id number] MR: [id number] V: [id number] EXAM DATE: [id number] ORDERING PHYSICIAN: KEVON KERN TECHNOLOGIST: Ghazal Jose PROCEDURE:BILATERAL DIAGNOSTIC DIGITAL MAMMOGRAM WITH CAD ASSISTED INTERPRETATION & 3D TOMOSYNTHESIS COMPARISON:Prior diagnostic mammogram 03/27/12 and Today's Left breast Ultrasound INDICATIONS:LT BREAST CYST 1-2 O'CLOCK POSITION FINDINGS: Moderately dense fibroglandular tissue is seen throughout the breasts. In the medial portion of the Left breast is an ovoid nodular density appears to have been present on the prior study although is slightly increased in size. This is not well localized on the Left MLO view although maybe just above midline in the deep central Left breast. The remainder of the parenchymal pattern has remained stable. DIAGNOSTIC CATEGORY 0--INCOMPLETE: NEED ADDITIONAL IMAGING EVALUATION. RECOMMENDATIONS: BREAST MRI: BILATERAL BREASTS. IMPRESSION: BIRADS 0: Incomplete. There is an ovoid nodular density medial to midline in the middle 1/3 of the Left breast that appears to have slightly increased in size when compared to the prior study. This is not ideally localized on the Left MLO view although maybe just above midline. Given the interval change with no sonographic correlate bilateral breast MR with and without contrast is recommended. No mass was identified mammographically or sonographically in the 1-2 o'clock position of the Left breast to account for patient's palpable findings which could also be evaluated by MR. Dictated by: Cinthia Witt M.D. on 05/14/2018 at 16:01 Transcribed by: DOMONIQUE on 05/14/2018 at 16:18 Approved by: Cinthia Witt M.D. on 05/15/2018 at 10:47 [facility]
--- NOTE | 2018-05-15 10:49 | RADIOLOGY IMAGING REPORT ---
FACILITY: [facility] PATIENT NAME: CARLA PAGAN : [id number] MR: [id number] V: [id number] EXAM DATE: [id number] ORDERING PHYSICIAN: KEVON KERN TECHNOLOGIST: Santiago Hall RDMS, [facility] PROCEDURE:US LEFT BREAST COMPLETE COMPARISON:Today's diagnostic mammogram & Left breast Ultrasound 06/23/09. INDICATIONS:PALPABLE LUMP 1-2 O'CLOCK POSITION LEFT BREAST & OVOID NODULAR DENSITY MEDIAL POSTION LEFT BREAST ON TODAY'S MAMMOGRAM. FINDINGS: The patient's entire Left breast was imaged revealing no sonographic abnormality cyst or solid. Clinical follow-up recommended for patient's palpable findings in the 1-2 o'clock position of the Left breast. A breast MR with and without contrast also recommended to evaluate patient's palpable findings and to evaluate the ovoid nodular density in the medial portion of the Left breast which appears to be slightly increased in size when compared to the prior mammogram. DIAGNOSTIC CATEGORY 0--INCOMPLETE: NEED ADDITIONAL IMAGING EVALUATION. RECOMMENDATIONS: BREAST MRI: BILATERAL BREASTS. IMPRESSION: BIRADS 0: Incomplete. Bilateral breast MR recommended as detailed above. Dictated by: Cinthia Witt M.D. on 05/14/2018 at 16:03 Transcribed by: DOMONIQUE on 05/15/2018 at 7:53 Approved by: Cinthia Witt M.D. on 05/15/2018 at 10:47 [facility]
== END ==
LOC: MAMO 01:33
PROVIDERS: ATTEND Family Medicine
DX: R92.2 Inconclusive mammogram (principal); E04.1 Nontoxic single thyroid nodule; Z80.3 Family history of malignant neoplasm of breast
CPT/HCPCS: 76536; 77062; 77066

== ENCOUNTER → 2018-05-27 | Outpatient (CLI) | payer BC ==
[~2018-05-27] MED LIST changes: +FERR240T2 PO; -FERR240T23 PO; +GADOBENATE 529MG/1ML 15ML VIAL IVP ONE; +NS(*) 0.9% 50 ML BAG 50 ML ONE
--- NOTE | 2018-05-27 13:23 | RADIOLOGY IMAGING REPORT ---
FACILITY: [facility] - [place] PATIENT NAME: Margie Newman : 1975 MR: [id number] V: [id number] EXAM DATE: ORDERING PHYSICIAN: KEVON KERN TECHNOLOGIST: Location: [facility] - [place] Patient: Margie Newman : 1975 Visit/Account:[id number] Date of Sevice: 05/27/2018 ORBITS FOREIGN BODY 1 VIEW Indication: Evaluate for foreign body Comparison: None. Findings: There is no radiopaque foreign body. Impression: Safe for MRI. Report Dictated By: Omega Kaplan at 05/27/2018 1:11 PM Report E-Signed By: Omega Kaplan at 05/27/2018 1:15 PM WSN:[email or web address]
--- NOTE | 2018-06-05 15:20 | RADIOLOGY IMAGING REPORT ---
FACILITY: [facility] PATIENT NAME: CARLA PAGAN : [id number] MR: [id number] V: [id number] EXAM DATE: [id number] ORDERING PHYSICIAN: KEVON KERN TECHNOLOGIST: Trish Garland PROCEDURE: BREAST BILATERAL W/O AND WITH CONTRAST/3D COMPUTER RECONSTRUCTIONS/COMPUTER ASSISTED DIAGNOSIS COMPARISON: Bilateral diagnostic mammogram and Left breast Ultrasound 05/14/18. INDICATIONS: Left breast palpable lump. CONTRAST: 15ml Multihance IV TECHNIQUE: All imaging was preformed prone in a dedicated breast coil. Axial and coronal T1 weighted images, axial T2 images, axial STIR images, axial gradient echo images and axial T1 weighted dynamically enhanced imaging of both breast were performed using 5 dynamic sequences. The dynamic series was timed for 90 second a peak. Subtraction imaging was preformed. 15mL of Multihance was administered intravenously for the post contrast portion of the examination. Post processing was performed using the [employer] workstation. The fibroglandular tissue is heterogeneously dense bilaterally. The background enhancement pattern is mild. FINDINGS: Several small cysts are scattered in both breasts. Benign appearing parenchymal asymmetries are scattered bilaterally. Fat capsules are present on the skin surface along the posterior aspect of the Left upper outer quadrant marking the palpable abnormality. No masses or areas of abnormal enhancement in either breast. No bulky axillary or internal mammary adenopathy. RECOMMENDATIONS: CLINICAL CORRELATION WITH REGUARD TO LEFT BREAST PALPABLE ABNORMALITY. AN IMAGING STUDY NEGATIVE FOR MALIGNANCY SHOULD NOT DETOUR BIOPSY IF INDICATED CLINICALLY. BILATRAL SCREENING MAMMOGRAPHY IS RECOMMEND IN 1 YR. CONCLUSION: BIRADS 1: Negative. Dictated by: Olivier Garcia M.D. on 05/28/2018 at 15:12 Transcribed by: DAGOBERTO on 05/29/2018 at 15:40 Approved by: Omega Cuellar on 06/05/2018 at 15:19 [facility]
== END ==
LOC: MRI 00:52
PROVIDERS: ATTEND Family Medicine
DX: R92.8 Other abnormal and inconclusive findings on diagnostic imaging of breast (principal)
CPT/HCPCS: 0159T; 70030; 77059; A9577; J7050

== ENCOUNTER → 2018-10-13 | Outpatient (CLI) | payer BC ==
[~2018-10-13] MED LIST changes: -GADOBENATE 529MG/1ML 15ML VIAL IVP ONE; -NS(*) 0.9% 50 ML BAG 50 ML ONE
--- NOTE | 2018-10-13 16:49 | RADIOLOGY IMAGING REPORT ---
FACILITY: PATIENT NAME: Margie Gordillo : 1975 MR: [id number] V: [id number] EXAM DATE: ORDERING PHYSICIAN: KEVON KERN TECHNOLOGIST: Location: [facility] - [place] Patient: Margie Gordillo : 1975 Visit/Account:[id number] Date of Sevice: 10/13/2018 THYROID EXAMINATION: Thyroid ultrasound HISTORY: Follow-up of abnormal ultrasound COMPARISON: 05/14/2018 FINDINGS: Thyroid size: Right lobe 5.3 x 1.6 x 1.7 cm Left lobe 4.8 x 1.7 x 1.7 cm Isthmus 0.9 cm Thyroid nodules: Right lobe - no focal concerning lesions. Small 3 mm hypoechoic cyst in the central aspect of the right gland stable in appearance when compared to previous study Left lobe - somewhat irregular iso-/hypoechoic nodule in the medial aspect of the left gland me asuring 6 x 3.5 mm. Previous measurement was 5.5 x 3.8 x 4.4 Isthmus - none Thyroid vascularity: normal IMPRESSION: 1. Stable appearing thyroid ultrasound. No change in the somewhat irregular hypoattenuated lesion i n the left lobe of the thyroid. Small cyst in the right lobe. Report Dictated By: Allan Nugent MD at 10/13/2018 3:58 PM Report E-Signed By: Allan Nugent MD at 10/13/2018 4:46 PM WSN:[email or web address]
== END ==
LOC: US 01:26
PROVIDERS: ATTEND Family Medicine
DX: E04.2 Nontoxic multinodular goiter (principal)
CPT/HCPCS: 76536

== ENCOUNTER 2018-12-01 04:31 | Emergency (ER) | payer BC ==
--- NOTE | 2018-12-01 04:35 | ER Report ---
History and Physical Time Seen By MD: 04:35 (BESS GERMAIN MD) Time Seen By MD: 07:38 (DAE FIGUEROA DO) HPI/ROS CHIEF COMPLAINT: chest pain, back pain HISTORY OF PRESENT ILLNESS: This is a 43 year old female. She awoke at 0300 with pain in her left chest that radiated to between her shoulder blades. Severe pain, sharp, does worsen with breathing and with movement. Has nausea associated. Feels short of breath. No history of personal heart problems, but significant family history. No history of blood clots. No history of aortic problems such as aneurysm or dissection. No fevers noted. Has had mild cough and runny nose for a few days. No weakness. No rashes. Took aspirin 81mg aspirin p rior to coming to the ER. No problems with bowel or bladder function. (BESS GERMAIN MD) HPI/ROS Please see Dr. Germain note (DAE FIGUEROA DO) Allergies: Coded Allergies: Sulfa (Sulfonamide Antibiotics) (Verified Allergy, Severe, 12/01/18) pantoprazole sodium (Verified Allergy, Intermediate, FACIAL SWELLING, 12/01) Home Meds Active Scripts Naproxen Sodium (ALEVE) 220 Mg Capsule, 440 MG PO BID, #20 CAPSULE Prov:DAE FIGUEROA DO 12/01/18 Prednisone (PREDNISONE) 50 Mg Tablet, 50 MG PO QDAY for 5 Days, #5 TAB Prov:DAE FIGUEROA DO 12/01/18 Reported Medications Lactobacillus Combination No.4 (PROBIOTIC) 1 Each Capsule, 1 EACH PO QDAY, CAPSULE 12/01/18 Flaxseed/Omega3,6,9/Fatty Acid (FLAX SEED OIL 1,300 MG SOFTGEL) 1 Each Capsule, 1 EACH PO QDAY, CAPSULE 12/01/18 Gabapentin (GABAPENTIN) 100 Mg Capsule, 1 CAP PO QAM 12/01/18 Fluoxetine Hcl (PROZAC) 10 Mg Capsule, 10 MG PO QDAY, CAPSULE 12/01/18 Duloxetine Hcl (CYMBALTA) 30 Mg Capsule.dr, 30 MG PO QDAY, #5 CAP 12/01/18 Levothyroxine Sodium (LEVOTHYROXINE SODIUM) 75 Mcg Tablet, 0.5 TAB PO QODAY, TAB 08/11/17 Cholecalciferol (Vitamin D3) (VITAMIN D3) 1,000 Unit Tablet, 49259 UNIT PO QDAY, TAB 10/01/16 Ascorbate Calcium (VITAMIN C) 500 Mg Tablet, 500 MG PO QDAY 07/28/15 Vitamin B Complex & Vit C No.4 (SUPER B COMPLEX) 150 Mg Tablet, 150 MG PO QDAY 07/28/15 Discontinued Reported Medications Bifidobacterium Infantis (ALIGN) 4 Mg Capsule, 4 MG PO QDAY, CAPSULE 01/31/18 Duloxetine HCl (Duloxetine HCl) 60 Mg Capsule.dr, 30 CAP PO DAILY 05/20/17 Famotidine (PEPCID) 20 Mg Tablet, 40 MG PO QDAY, #10 TAB 10/01/16 Discontinued Scripts Hydrocodone Bit/Acetaminophen (HYDROCODON-ACETAMINOPHEN 5-325) 1 Each Tablet, 1 EACH PO Q4-6H PRN for PAIN, #10 TAB Prov:PORFIRIO LEIJA IMMIGRATION MANAGER 01/31/18 Reviewed Nurses Notes: Yes (BESS GERMAIN MD) Hx Smoking: Yes (1/2ppd X 20) Smoking Status: Former Smoker Exposure to Second Hand Smoke?: Yes Hx Substance Use Disorder: No Hx Alcohol Use: No (BESS GERMAIN MD) Constitutional Vital Sign - Last 24 Hours 12/01/18 12/01/18 12/01/18 12/01/18 04:34 04:46 05:00 05:01 Temp 98.9 Pulse 86 83 85 Resp 20 10 28 B/P (MAP) 117/78 108/67 (81) Pulse Ox 93 90 92 O2 Delivery Room Air 12/01/18 12/01/18 12/01/18 12/01/18 05:16 05:21 06:01 06:06 Pulse 86 83 73 73 Resp 23 9 Pulse Ox 90 93 86 12/01/18 12/01/18 12/01/18 12/01/18 06:11 06:16 06:21 06:30 Pulse 74 70 71 Resp 14 12 6 B/P (MAP) 112/76 (88) Pulse Ox 81 86 87 12/01/18 12/01/18 12/01/18 12/01/18 06:36 06:51 07:00 07:06 Pulse 74 74 71 Resp 30 13 18 B/P (MAP) 117/72 (87) Pulse Ox 86 88 92 5/1312/01/18 12/01/18 12/01/18 07:21 07:30 07:36 07:51 Pulse 68 67 65 Resp 13 24 64 B/P (MAP) 90/53 (65) Pulse Ox 85 85 85 Intake and Output 11/30/18 11/30/18 12/01/18 15:00 23:00 07:00 Intake Total 50 ml Balance 50 ml (DAE FIGUEROA DO) Physical Exam General Appearance: The patient is alert. No acute distress. Eyes: Pupils are equal, round. No pallor, injection or icterus. ENT: Mucous membranes are moist. Normal oral mucosa. Posterior oropharynx is normal. Neck: Supple and non tender. Respiratory: Lungs are clear. Pain with deep breaths. There are no retractions or accessory muscle use. Cardiovascular: Regular rate and rhythm. No murmurs, gallops or rubs. Normal capillary refill. No edema. Gastrointestinal: Abdomen is soft and non tender. Nondistended. Normal active bowel sounds. No costovertebral angle tenderness with percussion. Neurological: Alert and oriented x3. No focal neurologic deficits Skin: Warm and dry. No rashes. Musculoskeletal: No pain with chest palpation. No tenderness in palpation of the cervical, thoracic and lumbar spine. DIFFERENTIAL DIAGNOSIS: After history and physical exam, differential diagnosis was considered for chest pain including but not limited to myocardial ischemia, pericarditis, pulmonary embolus, chest wall pain, pleural inflammation gastrointestinal causes, and pulmonary infectious causes. With the radiation to the back, I also worry about the possibility of aortic dissection in her age group and with the sudden onset of chest pain radiating to the back but is severe. (BESS GERMAIN MD) Physical Exam Please see Dr. Germain note (DAE FIGUEROA DO) Medical Decision Making Data Points Result Diagram: 12/01/18 0441 12/01/18 044 Laboratory Hematology Test 12/01/18 04:41 12/01/18 07:45 Red Blood Count 5.04 M/uL (4.17-5.56) Mean Corpuscular Volume 86.0 fL (80.0-96.0) Mean Corpuscular Hemoglobin 29.2 pg (26.0-33.0) Mean Corpuscular Hemoglobin Concent 34.0 g/dL (32.0-36.0) Red Cell Distribution Width 14.4 % (11.5-14.5) Mean Platelet Volume 6.9 fL (7.2-11.1) Neutrophils (%) (Auto) 54.7 % (39.4-72.5) Lymphocytes (%) (Auto) 31.3 % (17.6-49.6) Monocytes (%) (Auto) 11.0 % (4.1-12.4) Eosinophils (%) (Auto) 1.8 % (0.4-6.7) Basophils (%) (Auto) 1.2 % (0.3-1.4) Nucleated RBC Relative Count (auto) 0.1 /100WBC Neutrophils # (Auto) 3.9 K/uL (2.0-7.4) Lymphocytes # (Auto) 2.2 K/uL (1.3-3.6) Monocytes # (Auto) 0.8 K/uL (0.3-1.0) Eosinophils # (Auto) 0.1 K/uL (0.0-0.5) Basophils # (Auto) 0.1 K/uL (0.0-0.1) Nucleated RBC Absolute Count (auto) 0.00 K/uL Prothrombin Time 13.5 seconds (12.0-14.4) Prothromb Time International Ratio 1.03 Activated Partial Thromboplast Time 32 seconds (23-35) D-Dimer Quantitative (PE/DVT) 0.31 ug/ml (0-0.50) Sodium Level 138 mmol/L (137-145) Potassium Level 3.9 mmol/L (3.5-5.0) Chloride Level 107 mmol/L (98-107) Carbon Dioxide Level 22 mmol/L (22-31) Blood Urea Nitrogen 13 mg/dl (7-18) Creatinine 0.80 mg/dl (0.52-1.04) Glomerular Filtration Rate Calc > 60.0 Random Glucose 92 mg/dl (75-110) Calcium Level 9.0 mg/dl (8.4-10.2) Total Bilirubin 0.1 mg/dl (0.2-1.3) Aspartate Amino Transf (AST/SGOT) 19 U/L (0-35) Alanine Aminotransferase (ALT/SGPT) 22 U/L (0-56) Alkaline Phosphatase 69 U/L (0-126) B-Type Natriuretic Peptide < 5 pg/ml (0-100) Total Protein 7.4 g/dl (6.3-8.2) Albumin 4.4 g/dl (3.5-5.0) Human Chorionic Gonadotropin, Qual Negative (NEGATIVE) Troponin I < 0.012 ng/ml Chemistry Test 12/01/18 04:41 12/01/18 07:45 White Blood Count 7.1 k/uL (4.5-11.0) Red Blood Count 5.04 M/uL (4.17-5.56) Hemoglobin 14.7 g/dL (12.0-16.0) Hematocrit 43.4 % (34.0-47.0) Mean Corpuscular Volume 86.0 fL (80.0-96.0) Mean Corpuscular Hemoglobin 29.2 pg (26.0-33.0) Mean Corpuscular Hemoglobin Concent 34.0 g/dL (32.0-36.0) Red Cell Distribution Width 14.4 % (11.5-14.5) Platelet Count 339 K/uL (150-450) Mean Platelet Volume 6.9 fL (7.2-11.1) Neutrophils (%) (Auto) 54.7 % (39.4-72.5) Lymphocytes (%) (Auto) 31.3 % (17.6-49.6) Monocytes (%) (Auto) 11.0 % (4.1-12.4) Eosinophils (%) (Auto) 1.8 % (0.4-6.7) Basophils (%) (Auto) 1.2 % (0.3-1.4) Nucleated RBC Relative Count (auto) 0.1 /100WBC Neutrophils # (Auto) 3.9 K/uL (2.0-7.4) Lymphocytes # (Auto) 2.2 K/uL (1.3-3.6) Monocytes # (Auto) 0.8 K/uL (0.3-1.0) Eosinophils # (Auto) 0.1 K/uL (0.0-0.5) Basophils # (Auto) 0.1 K/uL (0.0-0.1) Nucleated RBC Absolute Count (auto) 0.00 K/uL Prothrombin Time 13.5 seconds (12.0-14.4) Prothromb Time International Ratio 1.03 Activated Partial Thromboplast Time 32 seconds (23-35) D-Dimer Quantitative (PE/DVT) 0.31 ug/ml (0-0.50) Glomerular Filtration Rate Calc > 60.0 Calcium Level 9.0 mg/dl (8.4-10.2) Total Bilirubin 0.1 mg/dl (0.2-1.3) Aspartate Amino Transf (AST/SGOT) 19 U/L (0-35) Alanine Aminotransferase (ALT/SGPT) 22 U/L (0-56) Alkaline Phosphatase 69 U/L (0-126) B-Type Natriuretic Peptide < 5 pg/ml (0-100) Total Protein 7.4 g/dl (6.3-8.2) Albumin 4.4 g/dl (3.5-5.0) Human Chorionic Gonadotropin, Qual Negative (NEGATIVE) Troponin I < 0.012 ng/ml Coagulation Test 12/01/18 04:41 Prothrombin Time 13.5 seconds Prothromb Time International Ratio 1.03 Activated Partial Thromboplast Time 32 seconds D-Dimer Quantitative (PE/DVT) 0.31 ug/ml (FIGUEROADAE LINDSAY S DO) EKG/Imaging EKG Interpretation 12 lead EKG: Rhythm: Normal sinus rhythm, rate 75 [place]: normal QRS: normal ST segments: normal Imaging EXAMINATION: CT angiogram of the thoracic aorta without and with IV contrast 12/01/2018 4:47 AM HISTORY: Chest pain. Mid back pain. TECHNIQUE: Thin section axial scans were obtained before and during maximal arterial opacification through the chest with gating. Reconstruction of the source data set includes multiplanar 2D in the sagittal and coronal planes, and 3D coronal thin slab MIP series. Fire Alarm Mechanic images have been stored on PACS. Contrast: 75 mL of IV Isovue 370. One of the following dose optimization techniques was utilized in the performance of this exam: Automated exposure control; adjustment of the mA and/or kV according to the patient's size; or use of an iterative reconstruction technique. Specific details can be referenced in the facility's radiology CT exam operational policy. COMPARISON STUDIES: Chest CT 08/03/2015. Chest x-ray 08/11/2017 FINDINGS: Angiographic findings: Thoracic aorta: Normal caliber without aneurysm or dissection. Other vasculature: No acute finding. No visible PE although the contrast bolus was not optimally tailored for evaluation. Incidentally a small left vertebral arises from the arch rather than the subclavian. Additional non-angiographic findings: none significant. IMPRESSION: Unremarkable CTA evaluation of the thoracic aorta. No acute finding in the chest. Report Dictated By: Omega Cuellar MD at 12/01/2018 6:20 AM (BESS GERMAIN MD) ED Course/Re-evaluation Clinical Indication for ER IV: Hydration, IV Access ED Course Initial evaluation is negative, d-dimer was mildly elevated, CT angiogram with timing for aortic dissection was negative. No other pulmonary parenchymal p roblems noted. The rest of labs were unremarkable. I reviewed all this with the patient. At this point were going to try a GI cocktail and some IV Pepcid. We will be repeating an EKG and troponin at about the 3 hour kaylyn to make sure there are no changes there. (BESS GERMAIN MD) ED Course I assumed patient care from Dr. Germain at 7:00 at shift change. Repeat troponin was scheduled for 745 delta 3 hour. Repeat troponin was negative. Recommended close PCP follow-up. Recommend considering cardiology follow-up. Return precautions provided. Prescription provided for prednisone, naproxen. Decision to Disposition Date: December 01, 2018 Decision to Disposition Time: 08:27 (DAE FIGUEROA DO) Depart Departure Latest Vital Signs Vital Signs Date Time Temp Pulse Resp B/P (MAP) Pulse Ox O2 Delivery O2 Flow Rate FiO2 12/01/18 07:51 65 64 85 12/01/18 07:30 90/53 (65) 12/01/18 04:34 98.9 Room Air (DAE FIGUEORA DO) Impression: Primary Impression: Pleurisy Additional Impression: Chest wall pain Condition: Improved Disposition: HOME OR SELF-CARE Referrals: KEVON KERN DO (PCP) New Scripts Naproxen Sodium (ALEVE) 220 Mg Capsule 440 MG PO BID, #20 CAPSULE Prov: DAE FIGUEROA DO 12/01/18 Prednisone (PREDNISONE) 50 Mg Tablet 50 MG PO QDAY for 5 Days, #5 TAB Prov: DAE FIGUEROA DO 12/01/18 Patient Instructions: Pleurisy (ED) Additional Instructions: Please drink plenty of water. Please take prednisone 1 tablet daily for 5 days. You may take naproxen up to 500 mg twice daily for the next several days for treatment. Please return promptly if she develop worsening chest pain, increasing shortness breath, fevers or chills, nausea or vomiting. Please foll ow-up with her primary care provider with consideration for possible need for cardiology follow-up. Problem Qualifiers BESS GERMAIN MD December 01, 2018 04:35 DAE FIGUEROA DO December 01, 2018 07:43
[2018-12-01] MEDS ORDERED: ASPIRIN 81 MG CHEW PO ONE (04:50)
[2018-12-01] MEDS ORDERED: FAMOTIDINE(*) 20MG/50ML PREMIX 50 ML IVPB ONE ×2 (04:50→06:40)
[2018-12-01 04:58] LABS: PLATELET COUNT, AUTOMATED 339 K/uL (150-450)
[2018-12-01] MEDS ORDERED: DULO30CA35 PO (04:58)
[2018-12-01] MEDS ORDERED: FLUO-201 PO (04:58)
[2018-12-01] MEDS ORDERED: FLAX1CAP4 PO (04:58)
[2018-12-01] MEDS ORDERED: GABA-547 PO (04:58)
[2018-12-01] MEDS ORDERED: LACT1CAP6 PO (04:58)
[2018-12-01 05:02] LABS: INR 1.03
--- NOTE | 2018-12-01 05:03 | EKG ---
FACILITY: [facility] - [place] PATIENT NAME: CARLA TRUJILLO : [id number] MR: [id number] V: [id number] EXAM DATE: ORDERING PHYSICIAN: BESS ATKINS TECHNOLOGIST: KATHERINE Donovan Reason : Blood Pressure : / mmHG Vent. Rate : 075 BPM Atrial Rate : 075 BPM P-R Int : 146 ms QRS Dur : 086 ms QT Int : 386 ms P-R-T Axes : 024 014 052 degrees QTc Int : 431 ms Normal sinus rhythm Normal ECG Confirmed by MOLLY WILL ([id number]) on 12/01/2018 6:27:47 AM Referred By: Confirmed By:MOLLY WILL
[2018-12-01] MEDS ORDERED: ONDANSETRON 4 MG/2 ML VIAL IVP ONE (05:30)
--- NOTE | 2018-12-01 06:35 | RADIOLOGY IMAGING REPORT ---
FACILITY: [facility] PATIENT NAME: Margie Gordillo : 1975 MR: [id number] V: [id number] EXAM DATE: ORDERING PHYSICIAN: BESS ATKINS TECHNOLOGIST: Location: [facility] Patient: Margie Gordillo : 1975 Visit/Account:[id number] Date of Sevice: 12/01/2018 EXAMINATION: CT angiogram of the thoracic aorta without and with IV contrast 12/01/2018 4:47 AM HISTORY: Chest pain. Mid back pain. TECHNIQUE: Thin section axial scans were obtained before and during maximal arterial opacification th rough the chest with gating. Reconstruction of the source data set includes multiplanar 2D in the sag ittal and coronal planes, and 3D coronal thin slab MIP series. Loom Setter Fourdrinier images have been stored on PACS. Contrast: 75 mL of IV Isovue 370. One of the following dose optimization techniques was utilized in the performance of this exam: Autom ated exposure control; adjustment of the mA and/or kV according to the patient's size; or use of an i terative reconstruction technique. Specific details can be referenced in the facility's radiology C T exam operational policy. COMPARISON STUDIES: Chest CT 08/03/2015. Chest x-ray 08/11/2017 FINDINGS: Angiographic findings: Thoracic aorta: Normal caliber without aneurysm or dissection. Other vasculature: No acute finding. No visible PE although the contrast bolus was not optimally ta ilored for evaluation. Incidentally a small left vertebral arises from the arch rather than the subcl antonio. Additional non-angiographic findings: none significant. IMPRESSION: Unremarkable CTA evaluation of the thoracic aorta. No acute finding in the chest. Report Dictated By: Omega Cuellar MD at 12/01/2018 6:20 AM Report E-Signed By: Omega Cuellar MD at 12/01/2018 6:30 AM [id number]
[2018-12-01] MEDS ORDERED: MAG HYD/AL HYD/SIMETH 30ML UDC PO ONE (06:40)
[2018-12-01] MEDS ORDERED: LIDOCAINE 2% VISC SLN 15ML UDC PO ONE (06:40)
[2018-12-01] MEDS ORDERED: ATRO/SCOPOL/HYOSCY/PB 5 ML ELX PO ONE (06:40)
[2018-12-01] MEDS ORDERED: LIDOCAINE 2% VISC SLN 15ML UDC ONE (06:54)
[2018-12-01] MEDS ORDERED: PRED50TA22 PO (07:42)
[2018-12-01] MEDS ORDERED: NAPR220C12 PO (07:42)
--- NOTE | 2018-12-01 07:58 | EKG ---
FACILITY: [facility] PATIENT NAME: CARLA TRUJILLO : [id number] MR: [id number] V: [id number] EXAM DATE: ORDERING PHYSICIAN: BESS ATKINS TECHNOLOGIST: Test Reason : Blood Pressure : / mmHG Vent. Rate : 057 BPM Atrial Rate : 057 BPM P-R Int : 146 ms QRS Dur : 092 ms QT Int : 410 ms P-R-T Axes : -12 027 049 degrees QTc Int : 399 ms Sinus bradycardia No acute appearing findings When compared with ECG of 01-DEC-2018 04:55, No significant change was found Confirmed by SARA ANN ([id number] on 12/01/2018 11:27:26 AM Referred By: Confirmed By:SARA ANN
[2018-12-01 08:29] VITALS: BP 108/64
== END 2018-12-01 08:37 | disposition home or self-care (01) ==
LOC: ER 04:38
DX: R09.1 Pleurisy (principal); R07.89 Other chest pain
CPT/HCPCS: 71275; 83880; 84484; 84703; 85025; 85379; 85610; 85730; 93005; 96365; 96375; 99284; J2405; 82040; 82247; 82310; 82374; 82435; 82565; 82947; 84075; 84132; 84155; 84295; 84450; 84460; 84520

== ENCOUNTER 2019-01-30 12:02 | Emergency (ER) | payer SELFPAY ==
[~2019-01-30 12:02] MED LIST changes: +DULO30CA35 PO; +FLAX1CAP4 PO; +FLUO-201 PO; +GABA-547 PO; +LACT1CAP6 PO; +NAPR220C12 PO; +PRED50TA22 PO
[2019-01-30] MEDS ORDERED: FERR324T4 PO (12:09)
--- NOTE | 2019-01-30 12:10 | ER Report ---
History and Physical Time Seen By MD: 12:04 HPI/ROS CHIEF COMPLAINT: Blood in stool HISTORY OF PRESENT ILLNESS: This is a 43-year-old female presents to the emergency department for blood in her stool. Patient states about 20-30 minutes prior to arrival, she was having a bowel movement, she was straining to have a bowel movement, noted to have bright red blood in her stool. She did have some discomfort around the rectum when she was having her bowel movement however she is not currently having the rectal discomfort. She has recently started on iron supplements as she was anemic. She also states that over the last 6-7 days she's had some lightheadedness. Patient does have gastroparesis, and likely has generalized abdominal discomfort, she continues to have this with no significant changes today. She denies fevers or chills. No nausea or vomiting. No chest pain or fevers breath. REVIEW OF SYSTEMS: Constitutional: No fever, no chills. Eyes: No discharge. ENT: No sore throat. Cardiovascular: No chest pain, no palpitations. Respiratory: No cough, no shortness of breath. Gastrointestinal: As above. Genitourinary: No hematuria. Musculoskeletal: No back pain. Skin: No rashes. Neurological: No headache. Allergies: Coded Allergies: Sulfa (Sulfonamide Antibiotics) (Verified Allergy, Severe, 01/30/19) pantoprazole sodium (Verified Allergy, Intermediate, FACIAL SWELLING, 01/30/19) Home Meds Reported Medications Ferrous Gluconate (FERROUS GLUCONATE) 324 Mg Tablet, 324 MG PO DAILY 01/30/19 Lactobacillus Combination No.4 (PROBIOTIC) 1 Each Capsule, 1 EACH PO QDAY, CAPSULE 12/01/18 Flaxseed/Omega3,6,9/Fatty Acid (FLAX SEED OIL 1,300 MG SOFTGEL) 1 Each Capsule, 1 EACH PO QDAY, CAPSULE 12/01/18 Fluoxetine Hcl (PROZAC) 10 Mg Capsule, 20 MG PO QDAY, CAPSULE 12/01/18 Cholecalciferol (Vitamin D3) (VITAMIN D3) 1,000 Unit Tablet, 43967 UNIT PO QDAY, TAB 10/01/16 Ascorbate Calcium (VITAMIN C) 500 Mg Tablet, 500 MG PO QDAY 07/28/15 Vitamin B Complex & Vit C No.4 (SUPER B COMPLEX) 150 Mg Tablet, 150 MG PO QDAY 07/28/15 Discontinued Reported Medications Gabapentin (GABAPENTIN) 100 Mg Capsule, 1 CAP PO QAM 12/01/18 Duloxetine Hcl (CYMBALTA) 30 Mg Capsule.dr, 30 MG PO QDAY, #5 CAP 12/01/18 Levothyroxine Sodium (LEVOTHYROXINE SODIUM) 75 Mcg Tablet, 0.5 TAB PO QODAY, TAB 08/11/17 Discontinued Scripts Naproxen Sodium (ALEVE) 220 Mg Capsule, 440 MG PO BID, #20 CAPSULE Prov:FIGUEROADAE Tala DO 12/01/18 Prednisone (PREDNISONE) 50 Mg Tablet, 50 MG PO QDAY for 5 Days, #5 TAB Prov:DAE FIGUEROA DO 12/01/18 Past Medical/Surgical History The patient has a past medical and surgical history of headaches, gastroparesis, GERD, hiatal hernia, arthritis, chronic back pain, wears glasses, Franca's, anemia, depression, anxiety, colonoscopy, EGD, tubal ligation, bunionectomy. Reviewed Nurses Notes: Yes Hx Smoking: Yes (1/2ppd X 20) Smoking Status: Former Smoker Exposure to Second Hand Smoke?: Yes Hx Substance Use Disorder: No Hx Alcohol Use: No Constitutional Vital Sign - Last 24 Hours 01/30/19 01/30/19 01/30/19 01/30/19 12:06 12:30 13:00 13:30 Temp 97.9 Pulse 84 92 65 69 Resp 18 B/P (MAP) 128/82 121/80 (94) 109/63 (78) 106/62 (77) Pulse Ox 92 92 92 O2 Delivery Room Air Physical Exam General Appearance: The patient is alert, has no immediate need for airway protection and no signs of toxicity. Eyes: Pupils equal and round no pallor or injection. ENT, Mouth: Mucous membranes are moist. Respiratory: There are no retractions, lungs are clear to auscultation. Cardiovascular: Regular rate and rhythm. No murmurs, clicks or rubs. Gastrointestinal: Abdomen is soft, mild generalized abdominal discomfort, no masses, hypoactive bowel sounds. Rectal exam: Very small nonthrombosed external hemorrhoid, internal digital exam revealing no obvious internal hemorrhoid, no gross blood noted on the gloved finger. Neurological: Alert and oriented 4. Moving all extremities. Following all commands. No focal neuro deficits. Skin: Warm and dry, no rashes. Musculoskeletal: Neck is supple non tender. Extremities are nontender, nonswollen and have full range of motion. DIFFERENTIAL DIAGNOSIS: After history and physical exam differential diagnosis was considered for hemorrhoid, constipation, GI bleed. Medical Decision Making Data Points Result Diagram: 01/30/19 1220 01/30/19 1220 Laboratory Hematology Test 01/30/19 12:20 White Blood Count 5.4 k/uL (4.5-11.0) Red Blood Count 4.78 M/uL (4.17-5.56) Hemoglobin 14.1 g/dL (12.0-16.0) Hematocrit 41.3 % (34.0-47.0) Mean Corpuscular Volume 86.4 fL (80.0-96.0) Mean Corpuscular Hemoglobin 29.4 pg (26.0-33.0) Mean Corpuscular Hemoglobin Concent 34.0 g/dL (32.0-36.0) Red Cell Distribution Width 15.1 % (11.5-14.5) H Platelet Count 308 K/uL (150-450) Mean Platelet Volume 7.2 fL (7.2-11.1) Neutrophils (%) (Auto) 50.7 % (39.4-72.5) Lymphocytes (%) (Auto) 33.3 % (17.6-49.6) Monocytes (%) (Auto) 13.6 % (4.1-12.4) H Eosinophils (%) (Auto) 1.3 % (0.4-6.7) Basophils (%) (Auto) 1.1 % (0.3-1.4) Nucleated RBC Relative Count (auto) 0.1 /100WBC Neutrophils # (Auto) 2.8 K/uL (2.0-7.4) Lymphocytes # (Auto) 1.8 K/uL (1.3-3.6) Monocytes # (Auto) 0.7 K/uL (0.3-1.0) Eosinophils # (Auto) 0.1 K/uL (0.0-0.5) Basophils # (Auto) 0.1 K/uL (0.0-0.1) Nucleated RBC Absolute Count (auto) 0.00 K/uL Chemistry Test 01/30/19 12:20 Sodium Level 139 mmol/L (137-145) Potassium Level 3.8 mmol/L (3.5-5.0) Chloride Level 106 mmol/L (98-107) Carbon Dioxide Level 23 mmol/L (22-31) Blood Urea Nitrogen 5 mg/dl (7-18) Creatinine 0.70 mg/dl (0.52-1.04) Glomerular Filtration Rate Calc > 60.0 Random Glucose 102 mg/dl (75-110) Calcium Level 9.5 mg/dl (8.4-10.2) Total Bilirubin 0.5 mg/dl (0.2-1.3) Aspartate Amino Transf (AST/SGOT) 22 U/L (0-35) Alanine Aminotransferase (ALT/SGPT) 30 U/L (0-56) Alkaline Phosphatase 67 U/L (0-126) Total Protein 7.2 g/dl (6.3-8.2) Albumin 4.3 g/dl (3.5-5.0) Urinalysis Test 01/30/19 13:09 Urine Color Straw Urine Clarity Clear Urine pH 7.0 pH (4.8-9.5) Urine Specific [place] 1.000 Urine Protein Negative mg/dL (NEGATIVE) Urine Glucose (UA) Negative mg/dL (NEGATIVE) Urine Ketones Negative mg/dL (NEGATIVE) Urine Blood Negative (NEGATIVE) Urine Nitrite Negative (NEGATIVE) Urine Bilirubin Negative (NEGATIVE) Urine Urobilinogen Negative mg/dL (0.2-1.9) Urine Leukocyte Esterase Negative (NEGATIVE) Urine RBC <1 /HPF (0-2/HPF) Urine WBC 1 /HPF (0-5/HPF) Urine Squamous Epithelial Cells Few /LPF (</=FEW) Urine Bacteria Few /HPF (NONE-FEW) Urine Mucus None /HPF (NONE-FEW) EKG/Imaging EKG Interpretation 12 lead EKG: Time of EKG 1229. Rhythm: Normal sinus rhythm, ventricular rate 67 bpm. [place]: normal QRS: Low voltage QRS. ST segments: No ST depression or elevation identified. No significant changes from the 12/01/2018 EKG, other than current low voltage EKG. Imaging PATIENT NAME: Margie Gordillo : 1975 MR: [id number] V: [id number] EXAM DATE: ORDERING PHYSICIAN: ANTONIA STEVENS TECHNOLOGIST: Location: [facility] - [place] Patient: Margie Gordillo : 1975 Visit/Account:[id number] Date of Sevice: 01/30/2019 Study: KUB SINGLE VIEW ABDOMEN Indication: Blood in stool Comparison study: August 11, 2017 Findings: Single supine view the abdomen demonstrates the presence of a large am ount stool within the right colon. There is no evidence of small bowel obstruction. The visualized bony structures are unremarkable. There are no abnormal calcifications identified overlying the abdomen. IMPRESSION: Large amount stool present within the right colon, otherwise unremarkable. Report Dictated By: Evelio Prakash at 01/30/2019 12:40 PM Report E-Signed By: Evelio Prakash at 01/30/2019 12:40 PM WSN:[email or web address] ED Course/Re-evaluation Clinical Indication for ER IV: Hydration, IV Access ED Course The patient was admitted to room. A history of physical obtained. Differential diagnoses were considered. An IV was turned. A CBC, CMP, UA and Hemoccult were obtained. 1 L normal saline bolus given. EKG showing normal sinus rhythm. KUB showing Large amount stool present within the right colon. Review the results wi th the patient and her significant other at bedside, I did tell the patient the symptoms she is experiencing is likely from bearing down during the bowel movement and causing the internal hemorrhoids to bleed, I did also reassured her that her laboratory studies were unremarkable, and there is no gross blood noted on the clot finger. I did however recommend following up with her GI specialist and/or our general surgeons for a colonoscopy and reevaluation. Also recommended stool softeners or MiraLAX while she is on the iron supplements. As well as increasing her water intake. Patient expressed understanding, she also states she was feeling much better at the time of discharge she had no other questions or concerns and discharged home. Rectal exam: Very small nonthrombosed external hemorrhoid, internal digital exam revealing no obvious internal hemorrhoid, no gross blood noted on the gloved finger. Decision to Disposition Date: Jan 30, 2019 Decision to Disposition Time: 13:35 Depart Departure Latest Vital Signs Vital Signs Date Time Temp Pulse Resp B/P (MAP) Pulse Ox O2 Delivery O2 Flow Rate FiO2 01/30/19 13:30 69 106/62 (77) 92 7/12/19 12:06 97.9 18 Room Air Impression: Primary Impression: Internal hemorrhoid, bleeding Additional Impression: Slow transit constipation Condition: Improved Disposition: HOME OR SELF-CARE Referrals: TAHIR FOSS KATY M MD ULLRICH, JOHN A MD Patient Instructions: Constipation (ED), Hemorrhoids (ED), Laxative, Stool Softeners (By mouth) Additional Instructions: You blood work and urine looked good today. You did have some microscopic blood in your stool, this is likely from internal hemorrhoids bleeding secondary to straining while stooling. Please start MiraLax again or add a stool softener to your diet, be sure to drink plenty of water too, this will help your stool transit. Get plenty of rest. Please follow up with your PCP as scheduled. Please follow up with GI or one of our surgeons for repeat colonoscopy. Return to the ED for any other concerns or worsening symptoms. Problem Qualifiers ANTONIA STEVENS PAPER COUNTER-BC Jan 30, 2019 12:10
[2019-01-30] MEDS ORDERED: NS(*) 0.9% 1000 ML BAG 1,000 ML IV ONE (12:25)
[2019-01-30 12:30] LABS: PLATELET COUNT, AUTOMATED 308 K/uL (150-450)
--- NOTE | 2019-01-30 12:41 | EKG ---
FACILITY: [facility] - [place] PATIENT NAME: CARLA TRUJILLO : [id number] MR: [id number] V: [id number] EXAM DATE: ORDERING PHYSICIAN: ANTONIA STEVENS TECHNOLOGIST: ETIENNE Donovan Reason : DIZZY Blood Pressure : / mmHG Vent. Rate : 067 BPM Atrial Rate : 067 BPM P-R Int : 140 ms QRS Dur : 088 ms QT Int : 398 ms P-R-T Axes : 002 008 035 degrees QTc Int : 420 ms Sinus rhythm Boredrline left axis No acute appearing findings Confirmed by SARA ANN ([id number] on 01/30/2019 2:12:27 PM Referred By: Confirmed By:SARA ANN
--- NOTE | 2019-01-30 12:47 | RADIOLOGY IMAGING REPORT ---
FACILITY: [facility] - [place] PATIENT NAME: Margie Gordillo : 1975 MR: [id number] V: [id number] EXAM DATE: ORDERING PHYSICIAN: ANTONIA STEVENS TECHNOLOGIST: Location: [facility] - [place] Patient: Margie Gordillo : 1975 Visit/Account:[id number] Date of Sevice: 01/30/2019 Study: KUB SINGLE VIEW ABDOMEN Indication: Blood in stool Comparison study: August 11, 2017 Findings: Single supine view the abdomen demonstrates the presence of a large amount stool within the right colon. There is no evidence of small bowel obstruction. The visualized bony structures are u nremarkable. There are no abnormal calcifications identified overlying the abdomen. IMPRESSION: Large amount stool present within the right colon, otherwise unremarkable. Report Dictated By: Evelio Prakash at 01/30/2019 12:40 PM Report E-Signed By: Evelio Prakash at 01/30/2019 12:40 PM WSN:[id number]
[2019-01-30 13:30] VITALS: BP 106/62
== END 2019-01-30 13:47 | disposition home or self-care (01) ==
LOC: ER 12:16
DX: K64.8 Other hemorrhoids (principal); K59.00 Constipation, unspecified
CPT/HCPCS: 74018; 81001; 82274; 85025; 93005; 96360; 99283; J7030; 82040; 82247; 82310; 82374; 82435; 82565; 82947; 84075; 84132; 84155; 84295; 84450; 84460; 84520; 99284